=== PATIENT | male | born 1950 | race Caucasian/White ===

== ENCOUNTER 2022-10-26 15:26 | Emergency (ER) | payer MEDICARE, OTHER ==
[2022-10-26] MEDS ORDERED: cefTRIAXone 1 GM Vial IVPUSH ONE (15:47)
[2022-10-26] MEDS ORDERED: Sodium Chloride 0.9% 1,000 ML IV ONE (15:47)
[2022-10-26 16:12] LABS: BASOPHILS PERCENT AUTO 0.4 % (0.2-1.2); EOSINOPHILS ABSOLUTE AUTO 0.1 x10^3/uL (0.0-0.5); HEMOGLOBIN 16.3 g/dL (14.0-18.0); IMMATURE GRAN ABSOLUTE AUTO 0.03 x10^3/uL (0.00-0.07); LYMPHOCYTES ABSOLUTE AUTO 1.1 x10^3/uL (1.0-4.8); LYMPHOCYTES PERCENT AUTO 10.7 % (25.0-50.0); MEAN CORPUSCULAR VOLUME 91.3 fL (78.0-93.0); MONOCYTES ABSOLUTE AUTO 1.1 x10^3/uL (0.0-0.8); NEUTROPHILS ABSOLUTE AUTO 7.9 x10^3/uL (1.8-7.7); NEUTROPHILS PERCENT AUTO 76.6 % (50.0-80.0); PLATELET COUNT,PLT 244 x10^3/uL (130-400); RED BLOOD CELL COUNT 5.26 x10^6/uL (4.5-6.0); WHITE BLOOD CELL COUNT,WBC 10.3 x10^3/uL (4.0-10.0)
[2022-10-26 16:37] LABS: A/G RATIO 0.91; C-REACTIVE PROTEIN 7.8 mg/dL (<=0.9); CALCIUM 9.3 mg/dL (8.5-10.1); EST CRCL DRUG DOSING (CG) 70.07 mL/min; PROTEIN TOTAL,TP 8.4 g/dL (6.4-8.2)
[2022-10-26] MEDS ORDERED: Iopamidol 755 Mg/ML 100 ML Bottle IVPUSH ONE (16:50)
[2022-10-26 16:59] LABS: CORONAVIRUS COVID-19 NAA NEGATIVE (NEGATIVE); INFLUENZA A NAA NEGATIVE (NEGATIVE); INFLUENZA B NAA NEGATIVE (NEGATIVE); RESPIRATORY SYNCYTIAL VIR NAA NEGATIVE (NEGATIVE)
[2022-10-26] MEDS ORDERED: Take Home: Amoxicillin/Clavulanate K 875-125 MG Tab, 2 Tab Pack PO ONE (18:29)
[2022-10-26] MEDS ORDERED: Pantoprazole 40 MG Tab.CR PO ONE (18:29)
[2022-10-26] MEDS ORDERED: Take Home: traMADol 50 MG, 4 Tab Pack PO ONE (18:51)
== END 2022-10-26 18:55 | disposition home or self-care (01) ==
LOC: VM.ED 15:26
DX: J69.0 Pneumonitis due to inhalation of food and vomit (principal); K44.9 Diaphragmatic hernia without obstruction or gangrene; I10 Essential (primary) hypertension; J45.909 Unspecified asthma, uncomplicated; E11.9 Type 2 diabetes mellitus without complications; Z88.6 Allergy status to analgesic agent; Z20.822 Contact with and (suspected) exposure to COVID-19
CPT/HCPCS: 0241U; 36415; 71046; 71275; 80053; 82550; 83605; 83615; 84484; 85025; 85379; 86140; 87040; 93005; 93010; 96361; 96374; 99284; 99285-25; A9270-GY; J0696; J7030; Q9967